=== PATIENT | male | born 1985 | race Caucasian/White ===

== ENCOUNTER 2018-01-07 13:16 | Emergency (ER) | payer OTHER ==
[~2018-01-07] VITALS: Ht 185.4 cm; Wt 81.7 kg
[2018-01-07 13:21] VITALS: BP 145/86
== END 2018-01-07 15:00 | disposition left against medical advice (07) ==
LOC: M.ERS 13:16
DX: Z53.21 Procedure and treatment not carried out due to patient leaving prior to being seen by health care provider (principal)

== ENCOUNTER 2019-04-04 13:27 | Emergency (ER) | payer OTHER ==
[~2019-04-04] VITALS: Ht 185.4 cm; Wt 90.7 kg
[2019-04-04] MEDS ORDERED: KEFLEX500 M1 PO (14:52)
[2019-04-04 15:30] VITALS: BP 134/80
== END 2019-04-04 15:31 | disposition home or self-care (01) ==
LOC: M.ERS 13:27
DX: L08.9 Local infection of the skin and subcutaneous tissue, unspecified (principal); F15.99 Other stimulant use, unspecified with unspecified stimulant-induced disorder

== ENCOUNTER → 2021-05-07 | Emergency (ER) | payer OTHER ==
[~2021-05-07] VITALS: Ht 185.4 cm; Wt 90.7 kg
[~2021-05-07] MED LIST: BLOOD PRESSURE MED; KEFLEX500 M1 PO; METFORMIN HCL500 M3 PO
[2021-05-07 20:04] LABS: ABSOLUTE LYMPHOCYTES 1.2 thou/uL (0.8-5.3); ABSOLUTE MONOCYTES 0.8 thou/uL (0.0-1.2); ABSOLUTE NEUTROPHILS 11.4 thou/uL (1.6-8.1); BASOPHILS 0.3 %; EOSINOPHILS 0.1 %; HEMATOCRIT 45.4 % (42.0-52.0); HEMOGLOBIN 15.1 gm/dL (14.0-18.0); LYMPHOCYTES 9.1 %; MCH 28.3 pg (26.0-34.0); MCHC 33.2 g/dL (28.0-37.0); MCV 85.1 fL (80.0-100.0); MONOCYTES 5.9 %; MPV 8.2 fl. (7.2-11.1); NUCLEATED RBCS 0 /100WBC; PLATELET COUNT* 266 thou/uL (150-400); POLYS 84.6 %; RBC 5.33 mil/uL (4.50-6.00); RDW-CV 13.3 % (10.5-14.5); WBC 13.5 thou/uL (4.0-11.0)
[2021-05-07 20:11] LABS: CALCIUM 9.9 mg/dL (8.5-10.1); CREATININE 2.3 mg/dL (0.6-1.3); POTASSIUM 3.7 mmol/L (3.5-5.1)
[2021-05-07 20:21] LABS: ALBUMIN 5.2 g/dL (3.4-5.0); TOTAL BILIRUBIN 3.5 mg/dL (<0.1-1.0); TOTAL PROTEIN 8.7 g/dL (6.4-8.2)
[2021-05-07 20:56] VITALS: BP 138/61
== END ==
LOC: M.ERS 19:34
PROVIDERS: Emergency Medicine
DX: N17.9 Acute kidney failure, unspecified (principal); F15.10 Other stimulant abuse, uncomplicated; R41.82 Altered mental status, unspecified; R06.89 Other abnormalities of breathing; Z79.899 Other long term (current) drug therapy